=== PATIENT | female | born 1985 | race African-American/Black ===

== ENCOUNTER 2021-05-30 12:26 | Emergency (ER) | payer BC ==
[~2021-05-30] VITALS: Ht 154.9 cm; Wt 96.8 kg
[~2021-05-30 12:26] MED LIST: CYCLOBENZAPRINE10 MG; HYDROCODONE-APA1 TAB PO; IBUPROFEN600 MG PO; PRENATAL COMPLE1 TAB PO
[2021-05-30 12:29] VITALS: Ht 154.9 cm; Wt 96.8 kg
[2021-05-30 12:55] LABS: BASOPHILS 0.5 % (0-2); EOSINOPHILS 1.2 % (0-7); HEMOGLOBIN 13.9 g/dL (12-16); LYMPHOCYTES 31.3 % (15-50); MCH 29.8 pg (26.0-34.0); MCHC 33.2 g/dL (31.0-37.0); MCV 89.7 fL (80.0-100.0); MEAN PLATELET VOLUME 6.7 fL (7.4-10.4); MONOCYTES 5.9 % (2-11); NEUTROPHILS 61.1 % (40-80); PLATELET COUNT 333 10x3/uL (130-400); RBC 4.68 10x6/uL (4.00-5.40); RDW 13.6 % (11.5-14.5); WBC 9.1 10x3/uL (4.8-10.8)
[2021-05-30 13:04] LABS: CALC OSMOLALITY 277 mosm/kg (275-300); CARBON DIOXIDE 25.9 mmol/L (21.0-32.0); CHLORIDE - SERUM 104 mmol/L (98-107); CREATININE - SERUM 0.8 mg/dL (0.6-1.3); GLUCOSE 97 mg/dL (74-106); POTASSIUM - SERUM 3.5 mmol/L (3.5-5.1); SODIUM 139 mmol/L (136-145); UREA NITROGEN 12 mg/dL (7-18); eGFR NON AFRICAN AMERICAN 85 mL/min (90-120)
[2021-05-30 13:16] LABS: ALKALINE PHOSPHATASE 85 U/L (30-120); ALT (SGPT) 18 U/L (10-68); BILIRUBIN - TOTAL 0.38 mg/dL (0.2-1.3); HCG - QUANTITATIVE (MATERNAL) 10 mIU/mL; PROTEIN - SERUM 8.2 g/dL (6.4-8.2)
[2021-05-30 13:16] LABS: BACTERIA FEW HPF (<MOD); BILIRUBIN NEGATIVE (NEGATIVE); GRANULAR CAST 7 LPF (0-1); KETONE 1+ mg/dL (< 1+); NITRITE NEGATIVE (NEGATIVE); SQUAMOUS EPITHELIAL 1 HPF (0-4); UROBILINOGEN NORMAL mg/dL (< 2); WHITE CELLS - URINE 33 HPF (0-4)
[2021-05-30 13:17] LABS: HCG SERUM POSITIVE (NEGATIVE)
[2021-05-30 14:49] VITALS: BP 148/78
== END 2021-05-30 14:50 | disposition home or self-care (01) ==
LOC: D.ER 12:26
PROVIDERS: Family Medicine
DX: O20.0 Threatened abortion (principal); Z3A.01 Less than 8 weeks gestation of pregnancy; I10 Essential (primary) hypertension; J45.909 Unspecified asthma, uncomplicated